=== PATIENT | female | born 1960 | race Caucasian/White ===

== ENCOUNTER → 2016-11-19 | Outpatient (CLI) | payer MEDICARE | LOC: NM 08:43 | DX: R10.13 Epigastric pain (principal); R93.3 Abnormal findings on diagnostic imaging of other parts of digestive tract | CPT/HCPCS: 78226; A9537 ==

== ENCOUNTER 2020-09-21 20:04 | Emergency (ER) | payer MEDICARE, OTHER ==
[~2020-09-21 20:04] MED LIST: CELEBREX200 MG PO; COLACE 100MG C100 MG PO; DIGITEK125 MCG PO; ELIQUIS5 MG PO; GLUCOPHAGE XR500 M1 PO; LOPRESSOR 25 MG25 MG PO; LOSARTAN-HCTZ1 EAC2 PO; NORCO 7.5-3251 EACH PO; PACERONE200 MG PO; PANTOPRAZOLE SO40 MG PO; PRAVASTATIN SOD40 MG PO; SOTALOL80 MG PO
[2020-09-21 21:09] LABS: HEMOGLOBIN 13.5 gm/dl (12.3-15.3); RED BLOOD COUNT 4.29 M/UL (4.00-5.10)
[2020-09-21 21:35] LABS: BUN/CREATININE RATIO 18 (0-10)
[2020-09-21] MEDS ORDERED: IBUPROFEN800 MG PO (23:20)
[2020-09-21] MEDS ORDERED: CYCLOBENZAPRINE5 MG PO (23:20)
== END 2020-09-21 23:31 | disposition home or self-care (01) ==
LOC: ER1 20:04
PROVIDERS: Emergency Medicine
DX: M54.12 Radiculopathy, cervical region (principal); I10 Essential (primary) hypertension; E11.9 Type 2 diabetes mellitus without complications; I27.20 Pulmonary hypertension, unspecified; F17.200 Nicotine dependence, unspecified, uncomplicated
CPT/HCPCS: 71045; 72125; 80053; 82550; 82553; 84484; 85025; 93005; 96374; 96375; 99284; J2270; J2405; Q9967

== ENCOUNTER → 2020-10-24 | Outpatient (CLI) | payer MEDICARE ==
[~2020-10-24] MED LIST changes: +CYCLOBENZAPRINE5 MG PO; +IBUPROFEN800 MG PO
== END ==
LOC: CT 08:19
PROVIDERS: Nurse Practitioner Family
DX: I47.2 Ventricular tachycardia (principal); I63.9 Cerebral infarction, unspecified; I11.0 Hypertensive heart disease with heart failure; I50.9 Heart failure, unspecified; R60.0 Localized edema; E78.5 Hyperlipidemia, unspecified; R07.9 Chest pain, unspecified; R06.02 Shortness of breath; I48.0 Paroxysmal atrial fibrillation; I25.5 Ischemic cardiomyopathy
CPT/HCPCS: 36415; 70470; 80048; 83735; 84443; Q9967

== ENCOUNTER → 2020-11-06 | Outpatient (CLI) | payer MEDICARE | LOC: EXRD 14:44 | DX: Z01.89 Encounter for other specified special examinations (principal); M85.852 Other specified disorders of bone density and structure, left thigh | CPT/HCPCS: 77080 ==

== ENCOUNTER → 2020-12-04 | Outpatient (CLI) | payer MEDICARE | LOC: KOH-I 08:00 | DX: M50.11 Cervical disc disorder with radiculopathy, high cervical region (principal) | CPT/HCPCS: 72141 ==

== ENCOUNTER → 2020-12-17 | Outpatient (CLI) | payer MEDICARE | LOC: NM 09:23 | DX: R00.2 Palpitations (principal); R60.0 Localized edema; R07.9 Chest pain, unspecified; I11.0 Hypertensive heart disease with heart failure; R06.02 Shortness of breath; I48.0 Paroxysmal atrial fibrillation; I25.5 Ischemic cardiomyopathy; E78.49 Other hyperlipidemia; R94.39 Abnormal result of other cardiovascular function study | CPT/HCPCS: 78452; 93017; A9502; J2785 ==

== ENCOUNTER → 2021-01-14 | Outpatient (CLI) | payer MEDICARE | LOC: KOH-I 12-30 08:00 | DX: M50.11 Cervical disc disorder with radiculopathy, high cervical region (principal); M48.02 Spinal stenosis, cervical region | CPT/HCPCS: 72125 ==